=== PATIENT | female | born 1960 | race Caucasian/White ===

== ENCOUNTER → 2021-02-16 14:43 | Outpatient (CLI) | payer SELFPAY ==
--- NOTE | 2021-02-16 14:52 | US_ITS ---
STUDY: THYROID ULTRASOUND REASON FOR EXAM: Female, 60 years old. THYROID NODULE TECHNIQUE: Ultrasound evaluation of the thyroid was performed with real-time and static woo-scale imaging. COMPARISON: None. FINDINGS: RIGHT LOBE: The right lobe of the thyroid gland measures 4.6 x 1.7 x 1.6 cm. There is a homogeneous echotexture. There is 1.8 cm echogenic shadowing region consistent with calcification. There is 0.5 cm hypoechoic nodule with central echogenic focus. LEFT LOBE: The left lobe of the thyroid gland measures 4.3 x 1.5 x 0.9 cm. There is a homogeneous echotexture. There are no demonstrated solid, cystic or complex lesions. ISTHMUS: The isthmus measures 1 mm. The regional lymph nodes are normal. US/Thyroid IMPRESSION: Right thyroid nodules including with calcification. Electronically Signed: Ham Jackson MD at 16:35 EDT , Service support ,
== END ==
PROVIDERS: PCP Family Medicine; Referring Provider Family Medicine; Visit Provider Family Medicine
DX: E04.1 Nontoxic single thyroid nodule (principal)
CPT/HCPCS: 76536

== ENCOUNTER → 2023-11-13 | Outpatient (CLI) | payer SELFPAY ==
--- NOTE | 2023-11-13 15:45 | US_ITS ---
INDICATION: THYROID NODULE EXAMINATION: Ultrasound US Thyroid (eg thyroid, parathyroid, parotid) TECHNIQUE: Hubbard scale and color doppler imaging was performed of the thyroid gland. COMPARISON: February 16, 2021 FINDINGS: RIGHT THYROID LOBE: 4.5 x 1.6 x 1.7 cm. Homogeneous echotexture with normal vascularity. [There is a calcified 1.6 x 1.1 x 1.2 cm upper thyroid lesion and adjacent 5 x 6 mm nodule with echogenic central focus, relative stability since the previous study. There are is a new mid thyroid hypoattenuated nodular lesions for 4 x 6 mm. LEFT THYROID LOBE: 4.7 x 1.2 x 1.2 cm. Homogeneous echotexture with normal vascularity. [No thyroid nodules are present. ISTHMUS: 2 mm. No thyroid nodules are present. US/Thyroid IMPRESSION: Stable right thyroid nodules with a new hypoattenuated nodule since the previous study. Electronically Signed: Angel Kevin DO at 17:35 EST ,
== END | disposition home or self-care (01) ==
PROVIDERS: PCP Family Medicine; Referring Provider Nurse Practitioner Family; Visit Provider Nurse Practitioner Family
DX: E04.1 Nontoxic single thyroid nodule (principal)
CPT/HCPCS: 76536

== ENCOUNTER → 2023-12-22 | Outpatient (CLI) | payer OTHER, SELFPAY ==
--- NOTE | 2023-12-22 09:20 | ASPS_PTH ---
PATIENT: DEJA DUMONT LOC: [facility] U#:[id number] AGE/SX: 63/F ROOM: RE12/22/[address]: Dr. Pankaj Walter MD : 1960 BED: DIS: 12/22/2023 SPEC #: [id number] RECD: 12/22/23 11:07 STATUS: EITAN MUÑOZ #: [id number] JOSÉ LUIS: 12/22/23 09:[address]: Pankaj Walter DEPT: CYTOLOGY RECD BY: Charlene Loo ENTERED: 12/22/23 11:50 SP TYPE: ASPIRATION OTHR DR: Dr. Ronen Venegas, DO Tissues: Thyroid gland, NOS Procedures: Special Stain Group II Cytology Other HEADER OPERATION: Fine needle aspiration, right thyroid nodule PRE-OP DIAGNOSIS: Right thyroid nodule TISSUE SUBMITTED: Right thyroid nodule x2 slides DIAGNOSIS CYTOLOGY Fine needle aspiration, Right thyroid nodule (smears); Virtually acellular specimen. Starks Category I. See comment. AM/mr 12/25/2023 COMMENT This specimen contains rare benign follicular cell clusters. Clinical correlation suggested. The Starks System for thyroid diagnostic categorization was used in the evaluation of this case. CYTOLOGY STUDY Slides are reviewed. CYTOLOGY GROSS Received are two smears labeled with the patient's name and designated per the requisition as Right thyroid nodule. Submitted for staining. / sven 12/22/2023 TC:5 [facility]: [id number]
== END | disposition home or self-care (01) ==
LOC: LABSPEC 11:12
PROVIDERS: PCP Family Medicine; Referring Provider Surgery; Visit Provider Surgery
DX: E04.1 Nontoxic single thyroid nodule (principal)
CPT/HCPCS: 88161; 88313